=== PATIENT | female | born 1930 | race Caucasian/White ===

== ENCOUNTER 2016-07-25 21:52 | Inpatient (IN) | payer MEDICARE ==
[~2016-07-25] VITALS: Ht 162.6 cm; Wt 62.6 kg
[~2016-07-25 21:52] MED LIST: HCTZ25 MG PO; LISINOPRIL5 MG PO; MYLANTA / MAALO30 ML PO; PROTONIX40 MG PO
[2016-07-25 23:31] LABS: BASOPHILS 0.2 % (0.0-2.0); EOSINOPHILS 0.2 % (0-7); HEMOGLOBIN 15.6 g/dL (12-16); IMMATURE GRANULOCYTES 0.3 % (0-5); LYMPHOCYTES 1.8 % (15-50); MCH 30.6 pg (26.0-34.0); MCHC 33.2 g/dL (31.0-37.0); MCV 92.2 fL (80.0-100.0); MEAN PLATELET VOLUME 11.1 fL (7.4-10.4); MONOCYTES 7.5 % (2-11); PLATELET COUNT 197 10x3/uL (130-400); RDW 13.8 % (11.5-14.5); WBC 14.5 10x3/uL (4.8-10.8)
[2016-07-25 23:57] LABS: ALBUMIN 4.3 g/dL (3.4-5.0); ALKALINE PHOSPHATASE 89 U/L (46-116); ALT (SGPT) 20 U/L (10-68); BILIRUBIN - TOTAL 0.63 mg/dL (0.2-1.3); CALC OSMOLALITY 289 mosm/kg (275-300); CALCIUM 9.9 mg/dL (8.5-10.1); CHLORIDE - SERUM 102 mmol/L (98-107); CREATININE - SERUM 1.4 mg/dL (0.6-1.3); GLUCOSE 136 mg/dL (74-106); POTASSIUM - SERUM 3.3 mmol/L (3.5-5.1); PROTEIN - SERUM 8.5 g/dL (6.4-8.2); SODIUM 141 mmol/L (136-145); UREA NITROGEN 32 mg/dL (7-18); eGFR NON AFRICAN AMERICAN 38 mL/min (90-120)
[2016-07-25 23:59] LABS: CREATINE KINASE 78 UL (21-215); MAGNESIUM - SERUM 1.7 mg/dL (1.8-2.4); PRO BNP 177 pg/mL (0-450); TROPONIN-I < 0.017 ng/mL (0.000-0.060)
[2016-07-26 00:36] LABS: APPEARANCE HAZY (CLEAR); BACTERIA FEW /hpf (NONE SEEN); BILIRUBIN NEGATIVE (NEGATIVE); COLOR YELLOW (YELLOW); GLUCOSE NEGATIVE (NEGATIVE); KETONE SMALL mg/dL (NEGATIVE); LEUKOCYTE ESTERASE TRACE (NEGATIVE); NITRITE NEGATIVE (NEGATIVE); PROTEIN NEGATIVE (NEGATIVE); RED CELLS - URINE 0-5 /hpf (0-5); UROBILINOGEN NORMAL (NORMAL)
[2016-07-26] MEDS ORDERED: ZYRTEC10 MG PO (02:09)
[2016-07-26 02:29] VITALS: BP 124/43; BMI 23.7
[2016-07-26 04:30] VITALS: BP 145/46
--- NOTE | 2016-07-26 07:15 | NUR ---
PATIENT RECEIVED ALERT IN MID PEDROZA POSITION WATCHING TV. RESPIRATIONS EVEN AND UNLABORED. SIDE RAILS UP X2. BED IN LOW POSITION. CALL LIGHT IN REACH. DENIES NEEDS.
[2016-07-26 08:30] VITALS: BP 121/55
--- NOTE | 2016-07-26 08:30 | NUR ---
PATIENT ALERT IN BED. PIPIDA SCAN ORDERED. EDUCATED PATIENT THAT SHE WOULD NOT BE ABLE TO HAVE ANYTHING TO EAT OR DRINK UNTIL AFTER HER TEST. PATIENT UPSET. STATES SHE WANTS TO GO HOME AND SHE FEELS BETTER. CONTINUES TO STATE THE ONLY REASON I GOT SICK IN THE FIRST PLACE IS BECAUSE OF MY NEIGHBORS. PATIENT DENIES NEEDS. CUP OF WATER REMOVED. SIDE RAILS UP X2. BED IN LOW POSITION. CALL LIGHT IN REACH. BED ALARM ON
[2016-07-26 09:24] LABS: HELICOBACTER PYLORI IGG POSITIVE (NEGATIVE)
--- NOTE | 2016-07-26 09:30 | NUR ---
PATIENT ALERT IN HIGH PEDROZA POSITION TALKING ON PHONE. NO SIGNS OF DISTRESS NOTED. SIDE RAILS UP X2. BED IN LOW POSITION. CALL LIGHT IN REACH. BED ALARM ON.
--- NOTE | 2016-07-26 10:00 | NUR ---
PATIENT ALERT IN BED AND CONFUSED. ORIENTED TO SELF AND PLACE. REQUESTING SOMETHING TO DRINK. REMINDED PATIENT SHE WAS NPO FOR A TEST. PATIENT STATES I'M NOT HAVING SURGERY, I DON'T WANT IT. EDUCATED PATIENT THAT SHE WASN'T SCHEDULED FOR SURGERY JUST FOR IMAGING TESTS. STATES UNDERSTANDING. STATES THE ONLY REASON I GOT SICK IN THE FIRST PLACE IS BECAUSE I HAVE NEIGHBORS THAT WILL TRY TO GET BACK AT YOU AND MAKE YOU SICK IF YOU MAKE THEM MAD. REORIENTED PATIENT. DENIES NEEDS. SIDE RAILS UP X2. BED IN LOW POSITION. CALL LIGHT IN REACH. BED ALARM ON.
--- NOTE | 2016-07-26 10:40 | NUR ---
PATIENT OFF FLOOR TO RADIOLOGY VIA WHEELCHAIR
--- NOTE | 2016-07-26 12:15 | NUR ---
PATEINT BACK TO ROOM FROM RADIOLOGY
[2016-07-26 12:30] VITALS: BP 118/62
--- NOTE | 2016-07-26 13:30 | NUR ---
PATIENT IN HIGH PEDROZA POSITION RESTING QUIETLY WITH EYES CLOSED. RESPIRATIONS EVEN AND UNLABORED. SIDE RAILS UP X2. BED IN LOW POSITION. CALL LIGHT IN REACH.
[2016-07-26 15:30] VITALS: BP 124/50
--- NOTE | 2016-07-26 18:00 | NUR ---
PATIENT IN HIGH PEDROZA POSITION TALKING ON PHONE. NO SIGNS OF DISTRESS NOTED. SIDE RAILS UP X2. BED IN LOW POSITION. CALL LIGHT IN REACH. BED ALARM ON.
--- NOTE | 2016-07-26 19:23 | NUR ---
PT RECEIVED RESTING IN BED. NO SIGNS OF DISTRESS. PT COMPLAINING OF STOMACH BURNING/SPITTING UP. DENIES ANY NEEDS AT THIS TIME. BED LOW, CALL LIGHT IN REACH.
[2016-07-26 20:00] VITALS: BP 136/59
--- NOTE | 2016-07-26 21:10 | NUR ---
ASSISTED PT TO BATHROOM. PT WITH LOOSE STOOLS. PT STILL COMPLAINING OF ACID REFLUX BURNING AND NAUSEA. ZOFRAN GIVEN. NO OTHER NEEDS AT THIS TIME. BED LOW, CALL LIGHT IN REACH, SIDE RAIL UPX2, BED ALARM ON.
--- NOTE | 2016-07-26 21:39 | NUR ---
PAGED DR. EVERETT FOR ORDERS FOR HEARTBURN/BURNING PT IS COMPLAINING OF. DR ORDERED PEPCID 20MG BID AND MAALOX SUSPENSION PRN Q4H, BOTH TO BE GIVEN NOW. WILL CONTINUE TO MONITOR PT.
--- NOTE | 2016-07-26 22:39 | NUR ---
PEPCID AND MAALOX GIVEN PER ORDER. PT STILL WITH LOOSE STOOLS, COMPLAINING OF BOTTOM BURNING. CRAIG BUTT PASTE APPLIED. WILL CONTINUE TO MONITOR.
--- NOTE | 2016-07-26 23:22 | NUR ---
PT SLEEPING. NO SIGNS OF DISTRESS. RESPIRATIONS EVEN AND UNLABORED. BED ALARM ON.
[2016-07-27] VITALS: BP 111/50
--- NOTE | 2016-07-27 02:00 | NUR ---
PT SLEEPING. BED ALARM ON.
--- NOTE | 2016-07-27 03:20 | NUR ---
RESTING WELL AT THIS TIME. NO C/O NOTE TO VOICED. C/L IN REACH AT BEDSIDE.
[2016-07-27 04:00] VITALS: BP 105/48
[2016-07-27 05:10] LABS: BASOPHILS 0.2 % (0.0-2.0); EOSINOPHILS 1.6 % (0-7); HEMATOCRIT 38.4 % (36.0-48.0); IMMATURE GRANULOCYTES 0.2 % (0-5); LYMPHOCYTES 18.7 % (15-50); MCH 29.9 pg (26.0-34.0); MCHC 32.3 g/dL (31.0-37.0); MCV 92.5 fL (80.0-100.0); MEAN PLATELET VOLUME 10.1 fL (7.4-10.4); MONOCYTES 17.3 % (2-11); PLATELET COUNT 185 10x3/uL (130-400); RBC 4.15 10x6/uL (4.00-5.40); RDW 14.2 % (11.5-14.5)
[2016-07-27 05:15] LABS: HEMOGLOBIN 12.4 g/dL (12-16); WBC 5.1 10x3/uL (4.8-10.8)
[2016-07-27 05:58] LABS: ANION GAP 11.8 mmol/L (8-16); BILIRUBIN - DIRECT 0.08 mg/dL (0.00-0.30); BILIRUBIN - INDIRECT 0.42 mg/dL (0.00-1.00); BILIRUBIN - TOTAL 0.5 mg/dL (0.2-1.3); CALCIUM 7.6 mg/dL (8.5-10.1); CARBON DIOXIDE 24.8 mmol/L (21.0-32.0); CREATININE - SERUM 1.2 mg/dL (0.6-1.3); POTASSIUM - SERUM 3.6 mmol/L (3.5-5.1)
[2016-07-27 06:02] LABS: ALBUMIN 2.9 g/dL (3.4-5.0); PROTEIN - SERUM 6.2 g/dL (6.4-8.2)
--- NOTE | 2016-07-27 07:10 | NUR ---
PATIENT RECEIVED ALERT IN LOW PEDROZA POSITION. RESPIRATIONS EVEN AND UNLABORED. DENIES NEEDS. SIDE RAILS UP X2. BED IN LOW POSITION. CALL LIGHT IN REACH.
--- NOTE | 2016-07-27 08:05 | NUR ---
PATIENT ALERT IN HIGH PEDROZA POSITION. RESPIRATIONS EVEN AND UNLABORED. SCHEDULED MEDICATION ADMINISTERED. SCDS ON BILATERALLY. SIDE RAILS UP X2. BED IN LOW POSITION. CALL LIGHT IN REACH. BED ALARM ON.
[2016-07-27 09:39] VITALS: BP 111/45
--- NOTE | 2016-07-27 10:25 | HP ---
PATIENT: SILVIA HERNANDEZ MEDICAL RECORD: [id number] ACCOUNT: [id number] LOCATION:[facility] [id number] : [birth year] ADMISSION DATE: 07/26/16 HISTORY AND PHYSICAL EXAMINATION REASON FOR ADMISSION: Nausea, vomiting, atypical chest pains. HISTORY OF PRESENT ILLNESS: The patient is an 86-year-old female was hospitalized a month ago in this institution for similar symptoms. She was noted to have some sludge in her gallbladder, tolerated diet, was discharged home. She was also seen by cardiology. Serial cardiac enzyme showing no cardiac injury. Cannot find further workup. Additionally, she had psychiatric eval by Dr. Gill indicating the patient could care for herself, but had early onset Alzheimer's dementia. The patient states she is not really sure how she got to the hospital but had some nausea and had some vomiting. She says she occasionally she will get weak spells, felt like her chest is tight and will go away. She denies exertional symptoms usually at rest, not usually postprandial. She lives at the [facility] and has a son living in town, so she sees him occasionally at jew? Denies any recent weight loss or fever. PAST MEDICAL HISTORY: Essential hypertension, presumed chronic cholecystitis, hyperlipidemia, Alzheimer's dementia. PAST SURGICAL HISTORY: Denies surgeries. ALLERGIES: None known. MEDICATIONS: Lisinopril 10 mg daily, Protonix 40 mg daily, compliance is unknown. FAMILY HISTORY: Mother presumably of heart disease. Father's health unknown. Brother with cancer of some type. SOCIAL HISTORY: She says she dabbled with smoking and alcohol, but never significantly. She worked in office situation in the past. She states she has 5 children, 1 son living locally who works at a local grocery store. REVIEW OF SYSTEMS: CONSTITUTIONAL: No fever, fatigue, or weight change. HEENT: No recent new visual change, sinus congestion, or sore throat. RESPIRATORY: No severe cough. CARDIAC: No exertional chest pain, but says occasionally she will have light weak spells with some substernal discomfort radiates up into her back. GASTROINTESTINAL: Nausea and vomiting on presentation to the ED. She denies fatty food intolerance and at this time is denying any GI symptoms whatsoever. Denies abdominal pain. Ultrasound 06/24/2016 did show sludge in the gallbladder consistent with chronic cholecystitis. MUSCULOSKELETAL: Has arthralgias in her knees, hips, and lumbar spine. Denies sciatica. INTEGUMENT: No rash or itching. PSYCHIATRIC: Denies depress mood. NEUROLOGIC: Admits to poor memory. She certainly is aware of her location at this time. Denies any homicidal or suicidal thoughts. Denies headaches or history of stroke. HISTORY AND PHYSICAL [id number] SILVIA HERNANDEZ PHYSICAL EXAMINATION: VITAL SIGNS: Temperature 97.6 Fahrenheit orally, pulse 78 and regular, respirations are 20, blood pressure 132/65. GENERAL: The patient is alert and oriented at this time, but somewhat disheveled appearing. HEENT: Normocephalic. Eyes are clear with early cataracts, both eyes. Oropharynx, poor dentition. Mucous membranes are somewhat dry. NECK: Supple. No bruits appreciated. CHEST: Distant breath sounds without wheeze or rales. HEART: Regular rate without MGR. PMI appropriate. Chest wall is nontender. ABDOMEN: Soft, nontender, no organomegaly, tenderness noted. RECTAL: Deferred. EXTREMITIES: She has 1+ mild pedal edema. Has crepitus in both knees with flexion and extension. NEUROLOGICAL: Gait was not tested. Neurologically, she has good printed circuit board panels plater in her upper extremities. No localizing motor deficits. She is oriented to person, place, and time. Has trouble subtracting serial sevens. LABORATORY DATA: Shows white count of 14.5, H&H of 15 and 47 with left shift. BMP shows potassium of 3.3, BUN and creatinine are 32 and 1.4, magnesium low at 1.7. Liver functions are normal. UA is hazy, small ketones, trace blood, 5-10 white cells, few bacteria. Recent gallbladder ultrasound on June 23 showed small amount of gallbladder sludge and partial fatty replacement of the pancreas. Chest x-ray at that time showed no cardiopulmonary disease. EKG has not been performed currently. ASSESSMENT: 1. Intravascular volume depletion. 2. Possible urinary tract infection. 3. Hypomagnesemia. 4. Hypokalemia. 5. Atypical chest pain. 6. Possible [id number] cholecystitis. 7. Alzheimer's dementia. 8. History of essential hypertension. PLAN: Agree with hydration. Place on IV antibiotics and obtain urine cultures. Check liver functions serially. With advancing diet if she has more GI symptoms, we will consider Pipida scan. TRANSINT:[id number] Voice Confirmation ID: [id number] DOCUMENT ID: [id number] SALINAS EVERETT MD at 1025 CC: [id number] DICTATION DATE: 07/26/16815 TURNER SPLITTER MACHINE OPERATOR: 07/26/16 1027 ADM IN [facility] [address] [id number]
--- NOTE | 2016-07-27 11:00 | NUR ---
ASSISTED UP TO RESTROOM THEN BACK TO BED. POSITIONED SELF FOR COMFORT. SIDE RAILS UP X2. BED IN LOW POSITION. CALL LIGHT IN REACH. SCDS ON BILATERALLY. BED ALARM ON.
[2016-07-27 12:46] VITALS: BP 110/50
--- NOTE | 2016-07-27 14:40 | NUR ---
PATIENT BACK TO ROOM FROM CT VIA WHEELCHAIR. THELMA WITH RADIOLOGY STATES PATIENT REFUSED SCAN AFTER GETTING TO RADIOLOGY.
--- NOTE | 2016-07-27 15:25 | NUR ---
IV TO LEFT AC LEAKING. IV D/C WITH CATH TIP INTACT. NEW 22 GAUGE IV SITED TO RIGHT FOREARM X1 ATTEMPT. FLUSHES EASY WITH BRISK BLOOD RETURN PRESENT. IVF INFUSING WITHOUT DIFFICULTY. SECURED WITH TAPE AND TEGADERM.
[2016-07-27 16:42] VITALS: BP 144/74
--- NOTE | 2016-07-27 17:15 | NUR ---
PATIENT ALERT IN BED VISITING WITH SON. NO SIGNS OF DISTRESS NOTED. SIDE RAILS UP X2. BED IN LOW POSITION. CALL LIGHT IN REACH.
[2016-07-27 21:00] VITALS: BP 123/64
--- NOTE | 2016-07-28 00:01 | NUR ---
PATIENT VERY RESTLESS ATTEMPTING TO GET OUT OF BED UNASSISTED. PATIENT ASSITED BACK TO BED. PRN ATIVAN GIVEN. BED LOW. CALL LIGHT IN REACH. BED ALARM ON.
[2016-07-28 01:00] VITALS: BP 120/66
--- NOTE | 2016-07-28 02:30 | NUR ---
PT IN BED WITH NO NEEDS. IV TO RIGHT FOREARM PATENT AND SALINE LOC. SCD'S ON. SIDE RAILS ARE UP X 2. BED IS LOW. CALL LIGHT IS IN REACH.
[2016-07-28 05:00] VITALS: BP 124/61
[2016-07-28 05:01] LABS: BASOPHILS 0.8 % (0.0-2.0); EOSINOPHILS 2.8 % (0-7); HEMOGLOBIN 12.7 g/dL (12-16); IMMATURE GRANULOCYTES 0.2 % (0-5); LYMPHOCYTES 35.2 % (15-50); MCH 29.6 pg (26.0-34.0); MCHC 31.8 g/dL (31.0-37.0); MCV 93.2 fL (80.0-100.0); MEAN PLATELET VOLUME 10.1 fL (7.4-10.4); MONOCYTES 15.6 % (2-11); NEUTROPHILS 45.4 % (40-80); PLATELET COUNT 180 10x3/uL (130-400); RBC 4.29 10x6/uL (4.00-5.40); RDW 14.1 % (11.5-14.5); WBC 5.1 10x3/uL (4.8-10.8)
[2016-07-28 05:17] LABS: ANION GAP 11.8 mmol/L (8-16); CALCIUM 8.4 mg/dL (8.5-10.1); CARBON DIOXIDE 24.8 mmol/L (21.0-32.0); CREATININE - SERUM 1.1 mg/dL (0.6-1.3); POTASSIUM - SERUM 4.6 mmol/L (3.5-5.1)
[2016-07-28 08:15] VITALS: BP 121/47
--- NOTE | 2016-07-28 09:22 | NUR ---
SCHEDULED MEDICATIONS ADMINISTERED AT THIS TIME. PT IS CONFUSED TO TIME AND SITUATION. ASSESSMENT PERFORMED PER FLOWSHEET. PT SELF POSITIONS FOR COMFORT AND IS UP AD JJ. PT CONTINUES TO REFUSE CT SCAN. IV TO RIGHT FOREARM SALINE LOCKED. SRX2, BED IN LOWEST POSITION AND LOCKED. CALL LIGHT IN REACH, WILL CONTINUE WITH PLAN OF CARE.
--- NOTE | 2016-07-28 11:30 | NUR ---
DENIES NEEDS AT THIS TIME. COMPLAINING OF DIARRHEA WHICH I TOLD PT WAS COMMON WITH THE TYPE OF GI INFECTION SHE HAS. DENIES PAIN. CALL LIGHT IN REACH, WILL CONTINUE WITH PLAN OF CARE.
[2016-07-28 12:10] VITALS: Ht 162.6 cm; Wt 62.6 kg
[2016-07-28 12:22] VITALS: BP 137/54
--- NOTE | 2016-07-28 13:46 | NUR ---
Patient Name: SILVIA HERNANDEZ Admission Status: ER Accout number: [id number] Admission Date: 07-27-2016 : 1930 Admission Diagnosis: Attending: JANELLE Current LOS: 1 Anticipated DC Date: 07-30-2016 Planned Disposition: Home Primary Insurance: MEDICARE A & B Discharge Planning Comments: CM MET WITH PATIENT AND TALKED WITH GRANDDAUGHTER (DEBBIE) ON PHONE REGARDING D/C NEEDS AND PLANS. PATIENT LIVES AT THE [facility] AND HAS AN ELEVATOR TO GET TO HER ROOM. PATIENT STATED SHE IS INDEPENDENT WITH HER CARE AND HAS NO DME AT HOME. PATIENT DOES NOT HAVE A PCP BUT USES [facility] WHEN NEEDED. PATIENTS SON (DAKOTAH) WORKS AT [employer]. PATIENTS GRANDDAUGHTER STATED SHE WILL NOT LET HOME HEALTH IN HER APT. AND HAS REFUSED HOME HEALTH. CM WILL CONTINUE TO FOLLOW PATIENT WITH D/C NEEDS AND PLANS. PCP NONE [facility]- [phone] DEBBIE (DAUGHTER) [phone] Regulatory Consultant: Anitha Colmenares How many steps to enter\exit or inside your home? elevator 0 * PCP none 0 * Pharmacy [facility] 0 * Preadmission Environment Home Alone 0 * ADLs Independent 0 * Equipment None 0 * List name and contact numbers for known caregivers / representatives who currently or will assist patient after discharge: DEBBIE (GRANDDAUGHTER) [phone] 0 * Community resources currently utilized None 0 * Additional services required to return to the preadmission environment? Yes 0 * Can the patient safely return to the preadmission environment? Yes 0 * Has this patient been hospitalized within the prior 30 days at any hospital? No 0 Grand Total: 0
--- NOTE | 2016-07-28 14:00 | NUR ---
SON VISITING PATIENT AT THIS TIME. PT DENIES NEEDS. CALL LIGHT IN REACH, WILL CONTINUE WITH PLAN OF CARE.
[2016-07-28 16:45] VITALS: BP 128/53
--- NOTE | 2016-07-28 19:25 | NUR ---
RECIEVED SHIFT REPORT. PT IS LYING IN BED. ALERT AND ORIENTED AND ABLE TO VERBALIZE NEEDS. IV IS PATENT AND SALINE LOC AT THIS TIME. SCD'S OFF AT THIS TIME. PT IS AMBULATORY BUT WAS INSTRUCTED TO CALL FOR ANY ASSISTANCE NEEDED. PT DENIES ANY PAIN AT THIS TIME. NO NEEDS ARE VERBALIZED AT THIS TIME. WILL CONTINUE TO MONITOR. SIDE RAILS ARE UP X 2. BED IS IN LOWEST POSITION. CALL LIGHT IS WITHIN REACH.
--- NOTE | 2016-07-28 20:05 | NUR ---
SHIFT ASSESSMENT COMPLETED. PT STATUS REMAINS UNCHANGED FROM PREVIOUS. NO NEEDS ARE VOICED. WILL MONITOR. SIDE RAILS X 2. BED LOW. CALL LIGHT IN REACH.
[2016-07-28 20:58] VITALS: BP 122/51
[2016-07-29 01:48] VITALS: BP 114/39
[2016-07-29 04:41] VITALS: BP 108/35
--- NOTE | 2016-07-29 07:49 | NUR ---
AWAKE AND ALERT. ORIENTED X3. LUNGS ARE CLEAR BILATERALLY, NO COUGH NOTED. SKIN IS INTACT WITHOUT REDNESS. SL TO RIGHT FOREARM PATENT WITHOUT REDNESS AT INSERTION SITE. DENIES NEEDS. SCD'S OFF AT THIS TIME. DR. EVERETT HERE.
[2016-07-29 08:57] VITALS: BP 122/47
--- NOTE | 2016-07-29 09:45 | NUR ---
AMBULATED IN HALLWAY PER SELF. GAIT STEADY.
--- NOTE | 2016-07-29 10:22 | NUR ---
Rehab Note- Prescreen Order received. The patient hasn't been seen by Physical therapy at this time, will await eval. Thank you for this referral! Alyson Howell RN Clinical Liaison, [facility]
--- NOTE | 2016-07-29 11:21 | NUR ---
WAS UP WITH PT IN HALLWAY AMBULATED.
--- NOTE | 2016-07-29 12:56 | NUR ---
Rehab Note- Physical therapy eval completed, patient noted to be independent with mobility. The patient is too high level for IRF stay. Thank you for this referral! Alyson Howell RN Clinical Liaison, [facility]
[2016-07-29 13:06] VITALS: BP 139/57
[2016-07-29 17:18] VITALS: BP 124/65
--- NOTE | 2016-07-29 18:54 | NUR ---
ATE MOST OF SUPPER. NO CHANGES NOTED. DENIES NEEDS.
--- NOTE | 2016-07-29 19:30 | NUR ---
RECIEVED SHIFT REPORT. PT IS LYING IN BED. ALERT AND ORIENTED AND ABLE TO VERBALIZE NEEDS. IV IS PATENT AND SALINE LOC AT THIS TIME. PT IS AMBULATORY BUT WAS INSTRUCTED TO CALL FOR ANY ASSISTANCE NEEDED. PT REFUSES SCD'S AT THIS TIME. PT DENIES ANY PAIN AT THIS TIME. NO NEEDS ARE VERBALIZED AT THIS TIME. WILL CONTINUE TO MONITOR. SIDE RAILS ARE UP X 2. BED IS IN LOWEST POSITION. CALL LIGHT IS WITHIN REACH.
[2016-07-29 21:00] VITALS: BP 112/45
--- NOTE | 2016-07-29 21:05 | NUR ---
SHIFT ASSESSMENT COMPLETED. PT STATUS REMAINS UNCHANGED FROM PREVIOUS. NO NEEDS ARE VOICED. WILL MONITOR. SIDE RAILS X 2. BED LOW. CALL LIGHT IN REACH.
--- NOTE | 2016-07-29 23:35 | NUR ---
PT C/O NAUSEA. ADMINISTERED PRESCRIBD PRN ZOFRAN ODT PER ORDER. DENIES FURTHER NEEDS. WILL MONITOR. SIDE RAILS X 2. BED LOW. CALL LIGHT IN REACH.
[2016-07-30 01:00] VITALS: BP 127/43
[2016-07-30 05:00] VITALS: BP 115/60
--- NOTE | 2016-07-30 08:03 | NUR ---
AWAKE AND ALERT. ORIENTED X3. NO C/O AT THIS TIME. LUNGS ARE CLEAR BILATERALLY, NO COUGH NOTED. SKIN IS INTACT WITHOUT REDNESS. SL TO RIGHT FOREARM IS PATENT WITHOUT REDNESS AT INSERTION SITE. DENIES NEEDS.
[2016-07-30] MEDS ORDERED: BIAXIN250 MG PO (08:08)
[2016-07-30] MEDS ORDERED: FLAGYL500 MG PO (08:08)
[2016-07-30] MEDS ORDERED: PROTONIX40 MG PO (08:09)
[2016-07-30 08:47] VITALS: BP 120/52
--- NOTE | 2016-07-30 09:23 | NUR ---
D/C REASSESSMENT NOTE: PATIENT IS DISCHARGING HOME TODAY BY (SON OR CAB). PATIENT CHOSE AND SIGNED THE SON FORM WITH [facility].
--- NOTE | 2016-07-30 10:00 | NUR ---
UP AND DRESSED IN ROOM. ANXIOUS TO GO HOME TODAY. WAITING ON FAMILY FOR RIDE.
[2016-07-30 12:30] VITALS: BP 134/46
--- NOTE | 2016-07-30 13:36 | NUR ---
DISCHARGED TO HOME WITH FAMILY AMBULATORY. DISCHARGE INSTRUCTIONS GIVEN BOTH VERBALLY AND WRITTEN. ALL QUESTIONS ANSWERED. PATIENT VERBALIZED UNDERSTANDING OF SAME. NEEDED PRESCRIPTIONS CALLED TO JAIMEE RENEE. SL TO RIGHT FOREARM D/C WITH CATHETER INTACT.
--- NOTE | 2016-08-07 09:22 | NUR ---
LATE ENTRY: PATIENT REFUSED HOME HEALTH ONCE HOME. [facility]
--- NOTE | 2016-08-18 06:09 | DS ---
PATIENT:SILVIA HERNANDEZ :[birth year] MEDICAL RECORD: [id number] DISCHARGE SUMMARY ADMISSION DATE: 07/27/16 DISCHARGE DATE: 07/30/16 DISCHARGE DIAGNOSES: Symptomatic intravascular volume depletion, hypomagnesemia, hypokalemia, Helicobacter pylori gastritis, and Alzheimer dementia. HOSPITAL COURSE: An 86-year-old female admitted to medicine unassigned call with symptoms of atypical epigastric pain and dehydration. On admission, she was noted to be dehydrated with question of UTI as well as multiple electrolyte abnormalities. White count was elevated at 14,000 and was corrected to 5000 with IV fluids and antibiotics. Her urine initially showed 5-10 white cells and epithelial cells. Culture was not placed in the emergency department prior to antibiotic therapy; therefore, no true diagnosis of UTI could be made. There was epigastric discomfort. The patient underwent a PIPIDA scan, which showed excretion of into ductal system and gallbladder with patch of very faint GI uptake but after 60 minutes the patient declined ejection fraction determination. The patient's chest x-ray showed granulomatous changes and some scarring in the right mid chest. A CT was ordered, but the patient refused "I have these problems in my lungs all my life." PT evaluation showed the patient ultimately walking 500 feet with minimal assistance. She was returned home to her home living situation. In light of her H. pylori I told her it was very important she take her medications for a full 14 days and we will therefore discharge her with home health to assist her compliance. Discharge H&H was 12.7 and 40.0 with a white count of 5100. Potassium was corrected from 3.3 to 4.6. BUN and creatinine are 13 and 1.1. Lactic acid was normal at 1.4. Amylase and lipase were normal. DISCHARGE DIET: Regular as tolerated. DISCHARGE MEDICATIONS: Zyrtec 10 mg p.o. daily, Biaxin 500 mg p.o. b.i.d. p.c. for 12 days, Flagyl 500 mg p.o. b.i.d. a.c. for 12 days, Protonix 40 mg p.o. daily for 12 days. ACTIVITY: Progress as tolerated, home health services on outpatient basis. Return to clinic as directed. TRANSINT:[id number] Voice Confirmation ID: [id number] DOCUMENT ID: [id number] SALINAS EVERETT MD at 0609 CC: [id number] DICTATION DATE: 07/30/16 0808 BLACK BELT: 07/30/16 09 DIS IN 07/30/16 [facility] [address] [place] [address]
== END 2016-07-30 13:44 | disposition home or self-care (01) | DRG 392 ==
LOC: D.ER 21:52 → D.MS 07-26 01:13 → OBSVTIME 07-27 13:00 → D.MS 07-27 15:24
PROVIDERS: Emergency Medicine; ADMIT Family Medicine
DX: K29.70 Gastritis, unspecified, without bleeding (principal); B96.81 Helicobacter pylori [H. pylori] as the cause of diseases classified elsewhere; R07.89 Other chest pain; G30.0 Alzheimer's disease with early onset; F02.80 Dementia in other diseases classified elsewhere, unspecified severity, without behavioral disturbance, psychotic disturbance, mood disturbance, and anxiety; I10 Essential (primary) hypertension; K81.1 Chronic cholecystitis; E78.5 Hyperlipidemia, unspecified; E86.0 Dehydration; E83.42 Hypomagnesemia; E87.6 Hypokalemia